=== PATIENT | female | born 1970 | race Caucasian/White ===

== ENCOUNTER 2025-04-15 01:27 | Emergency (ER) | payer OTHER, SELFPAY ==
[2025-04-15 01:35] VITALS: BP 156/90; PULSE 115; RESP 20; TEMP 37; O2SAT 98
[2025-04-15 02:13] VITALS: BP 153/87; PULSE 107; RESP 18; O2SAT 97
--- NOTE | 2025-04-15 02:50 | ED_ITS ---
HPI - Allergic Reaction General Chief complaint: Allergic Reaction Stated complaint: allergic reaction Time Seen by Provider: 04/15/25 02:37 History of Present Illness HPI narrative: 55-year-old female presenting to the emergency department with concerns of allergic reaction. Patient states that for the last 15 or so years she has had intermittent food allergies and states that she gets anaphylactic reactions including tongue swelling and throat irritation with various sweets. She had something sweet last night and several hours later woke up the middle night feeling like she was having an allergic reaction. She injected herself with her EpiPen with Benadryl and L even states that her symptoms resolved. Denies any hives or itching. She called EMS for assistance. She presents today in feels much better after the epinephrine. This has happened multiple x2 over the last 15 years. Was otherwise in her normal state of health. States her epinephrine pen was but did improve her symptoms. Denies any complaints at this time such as shortness of breath, difficulty swallowing. No abdominal pain, GI upset, diarrhea or nausea was otherwise in her normal state of health. Related Data Allergies Allergy/AdvReac Type Severity Reaction Status Date / Time No Known Allergies Allergy Verified 04/15/25 02:16 Review of Systems 2 Review of Systems: As reviewed above in HPI Exam 2 Narrative: GENERAL: [Well-appearing, well-nourished, and in no acute distress.] HEAD: [Normocephalic, atraumatic.] EYES: [PERRLA and EOMI.] ENT: Nares clear, no rhinorrhea or epistaxis. Mucous membranes moist. No base of tongue swelling, no uvular edema, no intolerance oral secretions. NECK: Supple. CHEST: No respiratory distress or wheezing HEART: [Regular rate and rhythm]. No murmur heard. [Normal peripheral pulses.] ABDOMEN: [Soft, nondistended], [nontender], [No rigidity or guarding] EXTREMITIES: Normal range of motion. [No edema.] SKIN: Rosacea over the upper extremities which is chronic and not urticarial or rash that is acute NEURO: [No focal deficits]. Alert and oriented [x3.] PSYCH: [Normal mood and affect.] Course Vital Signs Vital signs: Vital Signs Temperature 37.0 C 04/15/25 01:35 Pulse Rate 115 H 04/15/25 01:35 Respiratory Rate 20 04/15/25 01:35 Blood Pressure 156/90 H 04/15/25 01:35 Pulse Oximetry 98 04/15/25 01:35 Oxygen Delivery Room Air 04/15/25 01:35 Temperature 36.7 C 04/15/25 05:19 Pulse Rate 107 H 04/15/25 05:19 Respiratory Rate 19 04/15/25 05:19 Blood Pressure 153/97 H 04/15/25 05:19 Pulse Oximetry 98 04/15/25 05:19 Oxygen Delivery Room Air 04/15/25 01:35 MDM - Allergic Reaction MDM Narrative Medical decision making narrative: 55-year-old female presenting to the emergency department with concerns of allergic reaction. Patient states that for the last 15 or so years she has had intermittent food allergies and states that she gets anaphylactic reactions including tongue swelling and throat irritation with various sweets. She had something sweet last night and several hours later woke up the middle night feeling like she was having an allergic reaction. She injected herself with her EpiPen with Benadryl and L even states that her symptoms resolved. Denies any hives or itching. She called EMS for assistance. She presents today in feels much better after the epinephrine. This has happened multiple x2 over the last 15 years. Was otherwise in her normal state of health. States her epinephrine pen was but did improve her symptoms. Denies any complaints at this time such as shortness of breath, difficulty swallowing. No abdominal pain, GI upset, diarrhea or nausea was otherwise in her normal state of health. Patient otherwise appears well and her symptoms abated with epinephrine. Mildly tachycardic but no hypoxia. No signs or symptoms of anaphylaxis on examination. No tachypnea or fever. Given patient did inject herself with epinephrine she will be observed in the emergency department for rebound symptoms or any worsening allergic response for several hours. IV was established, she was given Solu-Medrol and Pepcid as well as basic laboratory studies being obtained. She was placed on property assessment monitor and pulse oximetry. Patient's workup was reassuring without any leukocytosis or anemia. Normal platelet count. Chemistry panel is normal, creatinine normal, glucose mildly elevated. Patient re-evaluated and her vital signs have normalized and she remains without symptoms. Patient observed here in the emergency department for multiple hours and remains clinically stable and without symptoms of allergic reaction. Will be sent home with refill of epinephrine autoinjector. Given return precautions and discharge instructions. Medical Records Attestation: I reviewed the patient's medical records. Lab Data Attestation: I reviewed the patient's lab results. 04/15/25 03:07 04/15/25 03:07 Labs: Lab Results 04/15/25 Range/Units 03:07 WBC 7.5 (4.5-10.0) K/mm3 RBC 3.93 L (4.2-5.4) M/mm3 Hgb 12.6 (12.0-15.0) g/dL Hct 37.4 (37.0-47.0) % MCV 95.2 (80-100) fl MCH 32.1 (26-34) pg MCHC 33.7 (32-36) g/dl RDW 13.2 (11.5-14.5) % Plt Count 298 (150-375) k/mm3 MPV 9.2 (7.4-10.4) fl Immature Gran % (Auto) 0.3 (0-0.5) % Neut % (Auto) 62.0 (45.5-73.1) % Lymph % (Auto) 24.8 (18.3-44.2) % Crane % (Auto) 11.1 H (2.6-8.5) % Eos % (Auto) 1.1 (0-4.4) % Baso % (Auto) 0.7 (0.2-1.2) % Lymph # (Auto) 1.87 (0.9-3.2) K/mm3 Crane # (Auto) 0.8 H (0.1-0.6) K/mm3 Eos # (Auto) 0.1 (0-0.3) K/mm3 Baso # (Auto) 0.1 (0.0-0.1) K/mm3 Abs Immat Gran (auto) 0.02 (0.00-0.031) K/mm3 Absolute Neuts (auto) 4.7 (1.3-6.7) K/mm3 Absolute Nucleated RBC 0.000 (0.0-0.012) K/mm3 Nucleated RBC % 0.0 (0.0-0.2) % Sodium 139 (137-145) mmol/L Potassium 4.2 (3.4-5.0) mmol/L Chloride 104 (98-107) mmol/L Carbon Dioxide 22 (22-30) mmol/L Anion Gap 13 H (4-12) mmol/L BUN 12 (7-17) mg/dL Creatinine 0.59 L (0.7-1.0) mg/dL Estim Creat Clear Calc 103 ml/min Estimated GFR > 60 (59 - ) Glucose 287 H (65-110) mg/dL Calcium 9.2 (8.4-10.2) mg/dL Discharge Plan Discharge Clinical Impression: Allergic reaction Patient Disposition: Home Condition: Stable Instructions: Antibiotic Form, Anaphylaxis (ED), Allergies (ED) Additional Instructions: We have refilled your epinephrine prescription. Take this in the event that you have anaphylaxis symptoms or allergic reaction that is severe. You can also take Benadryl and Pepcid/famotidine as needed for allergic reaction symptoms. Return with any emergencies otherwise follow-up with regular doctor. Patient Language: Amharic Prescriptions: New epinephrine [EpiPen 2-Edvin] 0.3 mg/0.3 mL auto-injector 0.3 mg IM Q5-15M PRN (Reason: anaphylaxis) Qty: 2 0RF Rx Instructions: do not exceed 3 doses per episode Follow-up/Referrals: Fred,MD Ramos [Primary Care Provider] -
[2025-04-15] MEDS: FAMOTIDINE 20 MG/2 ML VIAL IV PUSH (03:10)
--- OUTSIDE RECORDS SUMMARY | 2025-04-15 03:28 | XMS_ITS | Clinical Summary ---
Author Organization [facility] Address [address] [address] Phone Care Team Providers Care Ferry Operator Name Role Phone Unavailable Primary Care Provider Unavailabl e Allergies Active Allergy Reactions Criticality Noted Date Comments Metformin Diarrhea Low 12/04/2022 Dulaglutide Stomach upset Low 04/19/2023 Severe constipation Medications lancing device with lancets (Accu-Chek Multiclix Lancet) kitIndications:Ty pe 2 diabetes mellitus with hyperglycemia, without long-term current use of insulin (HCC) 1 each by other route 2 (two) times a day before breakfast and dinner 1 kit 3 Active blood glucose control high,low (Accu-Chek Yumiko Control Soln) solutionIndicatio ns:Type 2 diabetes mellitus with hyperglycemia, without long-term current use of insulin (HCC) Glucose control solution provides an easy way to ensure accurate blood glucose testing. 1 each 3 Active blood-glucose meter (Accu-Chek Yumiko Plus Meter) misc 1 each by other route 2 (two) times a day before breakfast and dinner 1 each 3 Active estradioL (ESTRACE) 1 mg tablet Take 1 tablet (1 mg total) by mouth daily Future refills must come from Gynecology 90 tablet 3 Active metroNIDAZOLE (METROCREAM) 0.75 % creamIndications: Acne Rosacea Apply topically 2 (two) times a week 45 g 1 3 Active Advair HFA 230-21 mcg/actuation inhalerIndication s:Moderate persistent asthma without complication INHALE 2 PUFFS 2 TIMES A DAY NEEDED. RINSE MOUTH WITH WATER AFTER USE. DO NOT SWALLOW. 12 each 3 3 Active glipiZIDE XL (GLUCOTROL XL) 10 mg 24 hr tablet Take 1 tablet (10 mg total) by mouth daily before breakfast 90 tablet 3 Active albuterol HFA (PROVENTIL HFA,VENTOLIN HFA,PROAIR HFA) 90 mcg/actuation inhalerIndication s:Moderate persistent asthma without complication Inhale 2 puffs every 6 (six) hours as needed for wheezing 8.5 each 3 Active amLODIPine (NORVASC) 10 mg tabletIndications :Hypertension, essential TAKE 1 TABLET BY MOUTH EVERY DAY 90 tablet 1 4 Active OneTouch Ultra Test stripIndications: Type 2 diabetes mellitus with hyperglycemia, without long-term current use of insulin (HCC) USE 1 STRIP TO TEST 2 (TWO) TIMES A DAY BEFORE BREAKFAST AND DINNER 200 strip 1 4 Active Active Problems Problem Noted Date Diagnosed Date Diabetic polyneuropathy asso ciated with type 2 diabetes mellitus 01/19/2023 Type 2 diabetes mellitus wit h hyperglycemia, without long-term current use of insulin 10/14/2022 Mixed dyslipidemia 10/14/2022 Type 2 diabetes mellitus with hyperlipidemia 04/2023 Hypertension associated with diabetes 10/14/2022 Hypertension, essential 10/12/2022 Moderate persistent asthma without complication 10/12/2022 Rosacea 10/12/2022 Eczema 10/12/2022 Immunizations Immunization Administration Dates Next Due Moderna SARS-CoV-2 Monovalent Vaccination (12+ Y RS) 07/15/2021,06/26/2021 Surgical History Surgery Date Site/Laterality Comments TOTAL ABDOMINAL 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 SECTION WISDOM TOOTH EXTRACTION 2 have been removed Medical History Medical History Date Comments Hypertension Asthma Ovarian tumor (benign), unspecified laterality Mixed dyslipidemia 10/14/2022 Diabetes (HCC) Family History Medical History Relation Name Comments Diabetes Father Hyperlipidemia Father Hypertension Father Diabetes Mother Hyperlipidemia Mother Hypertension Mother Breast cancer Neg Hx Colon cancer Neg Hx Relation Name Status Comments Father Mother Social History Tobacco Use Types Packs/Day Years Used Date Smoking Tobacco: Never Smokeless Tobacco: Never Tobacco Cessation:Counseling Given: Not Answered PHQ-2 Answer Date Recorded PHQ-2 Total Score (If total score is 3 or more points, staff should administer the PHQ-9) 0 10/12/2022 Personal Safety Answer Date Recorded Getting School Help Needed Not on file 08/18 Comments No Sex and Gender Information Value Date Recorded Sex Assigned at Not on file Legal Sex Female 8:09 AM COUNTER SALES REPRESENTATIVE Gender Identity Female 10/13/2022 10:44 AM COUNTER SALES REPRESENTATIVE Sexual Orientation Straight 10/13/2022 10 :44 AM COUNTER SALES REPRESENTATIVE Obstetrics History Last Filed Vital Signs Vital Sign Reading Time Taken Comments Blood Pressure 130/68 04/19/2023 10:25 AM CDT Pulse 80 04/19/2023 10:25 AM CDT Temperature - - Respiratory Rate - - Oxygen Saturation - - Inhaled Oxygen Concentration - - Weight 80.3 kg (177 lb) 04/19/2023 10:25 AM CDT Height 167.6 cm (5' 6) 04/19/2023 10:25 AM CDT Body Mass Index 28.57 04/19/2023 10:25 AM CDT Plan of Treatment Health Maintenance Due Date Last Done Comments Albumin Creatinine Ratio, Urine 1969 Breast Cancer Screening-Mammogram 1969 Colon Cancer Screening-Colonoscopy 1969 Dilated Eye Exam 1969 DTaP/Tdap/Td Vaccine (1 - Tdap) 01/05/1980 Hepatitis B Screening 1987 Regular Well Visit/Exam 18-64 1987 Pneumococcal vaccine <65 (1 of 2 - PCV) 01/05/1988 Zoster Vaccine (1 of 2) 2019 Depression Screening 10/12/2023 10/12/2022 Hemoglobin A1C 10/20/2023 04/19/2023, 01/04, 10/12/2022 Foot Exam 01/20/2024 01/19/2023 Lipid Panel 01/20/2024 01/19/2023, 10/12/2022 eGFR 01/20/2024 01/19/2023, 10/12/2022 Covid-19 Vaccine ( - season) 05/07/202405/2021, 06/26/2021 Influenza Vaccine (#1) 2025 Hepatitis C Screening Completed 10/12/2022 Procedures Procedure Name Priority Date/Time Associated Diagnosis Comments POCT HEMOGLOBIN A1C Routine 04/19/2023 1 0:30 AM CDT Type 2 diabetes mellitus with hyperlipidemia (HCC) EGFR Routine 01/19/2023 10:59 AM CDT Hypertension, essential Mixed dyslipidemia Hypertension associated with diabetes (HCC) LIPID PANEL Routine 01/19/2023 10:59 AM CDT Mixed dyslipidemia HEPATITIS C ANTIBODY Routine 10/12/2022 10:33 AM COUNTER SALES REPRESENTATIVE Encounter for hepatitis C screening test for low risk patient Laboratory examination ordered as part of a complete physical examination from Last 3 Months or Most Recently Relevant to Health Maintenance Results * POCT hemoglobin A1c (04/19/2023 10:30 AM CDT) Hemoglobin A1C, POC 6.7 % Blood 04/19/2023 10:3 0 AM CDT Danielle Davis MD POINT OF CARE TEST ORD ERABLES Final Result * eGFR (01/19/2023 10:59 AM CDT) eGFR 105 mL/min/1. 73 m2 SY[facility]IE MORSE Comment: Interpretive Data Reference Interval Normal >/= 90 mL/min/1.73m2 Mildly decreased* 60 - 89 mL/min/1.73m2 Mildly to moderately decreased 45 - 59 mL/min/1.73m2 Moderately to severely decreased 30 - 44 mL/min/1.73m2 Severely decreased 15 - 29 mL/min/1.73m2 Kidney Failure < 15 mL/min/1.73m2 *Relative to young adult level Estimated glomerular filtration rate is determined by the 2020 CKD-EPI equation recommended by the National Kidney Foundation (A Unifying Approach to GFR Estimation: Recommendations of the NKF-ASK Task Force on Reassessing the Inclusion of Race in Diagnosing Kidney Disease, JASN 202). The CKD-EPI equation should not be used for patients with unstable renal function and has not been validated in children and those over 70. Current interpretive data was last reviewed 2021. Blood 01/19/2023 10:5 9 AM CDT 01/19/2023 2:46 PM CDT Danielle Davis MD LAB BLOOD ORDERABLES F inal Result SYLVIE [id number] Department [place] [address] * (ABNORMAL) Lipid panel (01/19/2023 10:59 AM CDT) Cholesterol 220(H) 30 - 199 mg/dL SYLVIE MORSE Comment: Interpretive Data Ages < or = 19 years Acceptable: <170 mg/dL Borderline high: 170-199 mg/dL High: >or= 200 mg/dL Ages > or = 20 years Desirable: <200 mg/dL Borderline high: 200-239 mg/dL High: >or= 240 mg/dL Literature References: 1. Expert Panel on Integrated Guidelines for Cardiovascular Health and Risk Reduction in Children and Adolescents. Pediatrics 2011;128:S213 2. NCEP Expert Panel. Circulation 2004;110:227 Current Interpretive Data was last revised on 2018. Triglycerides 139 <=149 mg/dL SYLVIE MORSE Comment: Interpretive Data Ages < or = 9 years Acceptable: <75 mg/dL Borderline high: 75-99 mg/dL High: >or= 100 mg/dL Ages 10 to 20 years Acceptable: <90 mg/dL Borderline high: 90-129 mg/dL High: >or= 130 mg/dL Ages > or = 20 years Desirable: <150 mg/dL Borderline high: 150-199 mg/dL High: 200-499 mg/dL Very high: >or= 499 mg/dL Literature References: 1. Expert Panel on Integrated Guidelines for Cardiovascular Health and Risk Reduction in Children and Adolescents. Pediatrics 2011;128:S213 2. NCEP Expert Panel. Circulation 2004;110:227 Current Interpretive Data was last revised on 2018. HDL 84 >=40 mg/dL SYLVIE MORSE Comment: Interpretive Data Ages < or = 19 years Acceptable: >45 mg/dL Borderline low: 40-45 mg/dL Low: <40 mg/dL Ages > or = 20 years Desirable: >or= 60 mg/dL Low: <40 mg/dL Literature References: 1. Expert Panel on Integrated Guidelines for Cardiovascular Health and Risk Reduction in Children and Adolescents. Pediatrics 2011;128:S213 2. NCEP Expert Panel. Circulation 2004;110:227 Current Interpretive Data was last revised on 2018. LDL, calculated 108 <=129 mg/dL SYLVIE MORSE Comment: Interpretive Data Ages < or = 19 years Acceptable: <110 mg/dL Borderline high: 110-129 mg/dL High: >or= 130 mg/dL Ages > or = 20 years Optimal: <100 mg/dL Near optimal: 100-129 mg/dL Borderline high: 130-159 mg/dL High: >160 mg/dL Literature References: 1. Expert Panel on Integrated Guidelines for Cardiovascular Health and Risk Reduction in Children and Adolescents. Pediatrics 2011;128:S213 2. NCEP Expert Panel. Circulation 2004;110:227 Current Interpretive Data was last revised on 2018. Non-HDL Cholesterol 136 mg/dL SYLVIE MORSE Comment: Interpretive Data Ages < or = 19 years Acceptable: <120 mg/dL Borderline high: 120-144 mg/dL High: >145 mg/dL Ages > or = 20 years When triglycerides are >200 mg/dL, Non-HDL cholesterol is a secondary target of therapy with treatment goals that are 30 mg/dL greater than the LDL cholesterol target. Literature References: 1. Expert Panel on Integrated Guidelines for Cardiovascular Health and Risk Reduction in Children and Adolescents. Pediatrics 2011;128:S213 2. NCEP Expert Panel. Circulation 2004;110:227 Current Interpretive Data was last revised on 2018. Chol/HDL ratio 3 SYLVIE MORSE Blood 01/19/2023 10:5 9 AM CDT 01/19/2023 2:42 PM CDT us Danielle Davis MD LAB BLOOD ORDERABLES F inal Result SYLVIE MORSE [id number] Department [place] [address] * Hepatitis C antibody (10/12/2022 10:33 AM COUNTER SALES REPRESENTATIVE) Hep C Ab Nonreactive Nonreactive SYLVIE MORSE Comment: Interpretive Data Nonreactive: Antibodies to HCV not detected. Does NOT exclude the possibility of recent exposure to HCV. Equivocal: Equivocal for HCV antibodies. Supplemental molecular testing will be automatically performed to determine infection status in accordance with current CDC screening recommendations. Reactive: Positive for HCV antibodies. This may represent current or past HCV infection. Supplemental molecular testing will be automatically performed to determine current infection status in accordance with current CDC screening recommendations. Interpretive data was last revised on 2019. Blood 10/12/2022 10:3 3 AM COUNTER SALES REPRESENTATIVE 10/12/2022 3:57 PM COUNTER SALES REPRESENTATIVE Danielle Davis MD LAB MICROBIOLOGY - GEN ERAL ORDERABLES Final Result SYLVIE [id number] Department [place] [address] from Last 3 Months or Most Recently Relevant to Health Maintenance Insurance [facility]
[2025-04-15 03:30] VITALS: BP 140/78; PULSE 99; RESP 16; O2SAT 99
[2025-04-15 03:35] LABS: Hematocrit 37.4 % (37.0-47.0); Hemoglobin 12.6 g/dL (12.0-15.0); Immature Granulocyte Percent A 0.3 % (0-0.5); Lymphocytes Absolute Auto 1.87 K/mm3 (0.9-3.2); Mean Corpuscular HGB Conc 33.7 g/dl (32-36); Mean Corpuscular Hemoglobin 32.1 pg (26-34); Mean Corpuscular Volume 95.2 fl (80-100); Nucleated Red Blood Cells Absolute Auto 0.000 K/mm3 (0.0-0.012); Nucleated Red Blood Cells Perc 0.0 % (0.0-0.2); Platelet Count Result 298 k/mm3 (150-375); Red Blood Count 3.93 M/mm3 (4.2-5.4); White Blood Count 7.5 K/mm3 (4.5-10.0)
[2025-04-15 03:37] LABS: Anion Gap 13 mmol/L (4-12); Blood Urea Nitrogen 12 mg/dL (7-17); Calcium 9.2 mg/dL (8.4-10.2); Carbon Dioxide 22 mmol/L (22-30); Chloride 104 mmol/L (98-107); Estimated CRCL calculation 103 ml/min; Estimated Glomerular Filt Rate > 60; Glucose 287 mg/dL (65-110); Potassium 4.2 mmol/L (3.4-5.0); Sodium 139 mmol/L (137-145)
[2025-04-15 05:19] VITALS: BP 153/97; PULSE 107; RESP 19; TEMP 36.7; O2SAT 98
== END 2025-04-15 05:15 | disposition home or self-care (01) ==
PROVIDERS: Emergency Provider Student in an Organized Health Care Education/Training Program; PCP Family Medicine
DX: T78.40XA Allergy, unspecified, initial encounter (principal); X58.XXXA Exposure to other specified factors, initial encounter
CPT/HCPCS: 36415; 80048; 85025; 96374; 96375; 99284; J2919

== ENCOUNTER 2025-08-18 11:19 | Emergency (ER) | payer OTHER, SELFPAY ==
--- OUTSIDE RECORDS SUMMARY | 2007-09-13 03:01 | XMS_ITS | Continuity of Care Document ---
Author Organization [facility] Address [address] [place] [address] Phone Care Team Providers Care Water Purifier Name Role Phone Unavailable Unavailable Unavailable Allergies, Adverse Reactions, Alerts Substance Reaction Status Criticality No Known allergies Medications Medication Instructions Dosage Effective Dates (start - stop) Status Comments ALBUTEROL 90MCGAEROSOL 2 puffs every 6-8 hours .hfa - Active Advair HFA 115 mcg-21 mcg/Actuation Aerosol Inhaler one puff twice a day - Active prednisone 20 mg Tab 2 tablets a day until finished - Active ProAir HFA 90 mcg/Actuation Aerosol Inhaler inhale 2 puffs by mouth every 6-8 hour. PATIENT MUST F/U WITH PCP. - No Longer Active Advance Directives Directive Yes / No Effective Date File Name No Information Encounters Encounter Description Practice Location Reason(s) For Visit Diagnoses Date Provider Providers Copied on Encounter [facility], [address], [place], [place], [id number], [place] tel:[phone] [facility] Internal Medicine No Information No Information [facility], [address], [place], [id number], [place] tel:[phone] [facility] Internal Medicine asthma problems (chief complaint) ASTHMA NOSALLERGIC RHINITIS NOS Marlene Randle. [address] [place] [address], [id number], [place]. tel:[phone] Referring Provider: Jer Rosario, [address] [place] [address], [id number] . tel:[phone] Family History Family Member Type Diagnosis Age At Onset No Information Payers Payer name Insurance type Covered democrat ID Authoriza tion(s) No Information Social History Type Description Quantity Date Captured Comments Sex Female Smoking Status No Information Chief Complaint And Reason For Visit No Information Reason For Referral Reason For Referral No Information History Of Present Illness Encounter Date Complaint History Of Prese nt Illness No Information Functional Status Date Functional Assessmen t No Information Instructions Date Instruction Additional Infor mation No Information Assessments Type Assessment Date No Information Patient Care Teams Name Effective Dates (start - stop) Status Members No Information
--- OUTSIDE RECORDS SUMMARY | 2007-09-13 03:01 | XMS_ITS | Continuity of Care Document ---
Author Organization [facility] Address [address] [place] [address] Phone Care Team Providers Care Almond Paste Molder Name Role Phone Unavailable Unavailable Unavailable Allergies, [...] Diagnoses Date Provider Providers Copied on Encounter [facility], [address], [place], [place], [id number], [place] tel:[phone] [facility] Internal Medicine No Information No Information [facility], [address], [place], [id number], [place] tel:[phone] [facility] Internal Medicine asthma problems (chief complaint) ASTHMA NOSALLERGIC RHINITIS NOS Marlene Randle. [address] [place] [address], [id number], [place]. tel:[phone] Referring Provider: Jer Rosario, [address] [place] [address], [id number] . tel:[phone] Family History Family Member Type Diagnosis Age At Onset No Information Payers Payer name Insurance type Covered alliance party ID Authoriza tion(s) No Information Social History [...]
[2025-08-18] VITALS (17 sets, daily range): BP systolic 127–170; BP diastolic 65–101; PULSE 89–119; RESP 12–33; TEMP 37.1; O2SAT 98–100
--- OUTSIDE RECORDS SUMMARY | 2025-08-18 11:22 | XMS_ITS | Data Portability ---
[facility] Address [address] [place] [address] Assessment No assessment recorded. Plan of Treatment Reminders Order Date Submit Date Provider Last Modified By Organization Details Last Modified Time Details Appointments None recorded. Lab None recorded. Referral None recorded. Procedures None recorded. Surgeries None recorded. Imaging None recorded. Medication Orders estradiol 1 mg tablet 2022 023 [email or web address] [id number], [address] [place], [address], 4 14:39:26 clobetasol 0.05 % topical ointment 2022 023 ADITHYA [facility] #[id number], [address] [place], [address], 3 16:52:01 Patient TargetsNo targets recorded. Patient InstructionsNo instructions recorded. Reason for Referral None Reported. Problems No Known Problems Procedures Surgical History Date Name Laterality Status Provider Name and Address Organization Details Recorded Time 09/06/19 17 Total hysterectomy completed France Paredes APN, JORGEC Attn: Accounting,[address] [facility], [place], [address], [facility] 08/04/2023 14:01:03 section completed Funmilayo Amado MA [facility] 11/12/2022 16:19:24 Imaging Results None recorded. Procedure Notes None recorded. Medical Equipment None Reported. Allergies No known drug allergies Medications Name Sig Start Date Stop Date Status Note LastModified by Organization Details LastModified Time glipizide ER 10 mg tablet, extended release 24 hr TAKE 1 TABLET BY MOUTH EVERY DAY BEFORE BREAKFAST active Not Available Not Available No t Available estradiol 1 mg tablet TAKE 1 TABLET BY MOUTH EVERY DAY PT NEEDS APPT 2024 active Not Available Not Available Not Avai jude OneTouch Ultra Test strips USE 1 STRIP TO TEST 2 (TWO) TIMES A DAY BEFORE BREAKFAST AND DINNER active Not Available Not Available N ot Available amlodipine 10 mg tablet TAKE 1 TABLET BY MOUTH EVERY DAY active Not Available Not Available No t Available clobetasol 0.05 % topical ointment APPLY THIN COAT TO AFFECTED AREA TWICE A DAY active Not Available Not Available No t Available albuterol sulfate HFA 90 mcg/actuation aerosol inhaler TAKE 2 PUFFS BY MOUTH EVERY 6 HOURS NEEDED FOR WHEEZE active Not Available Not Available No t Available metformin ER 500 mg tablet,extend ed release 24 hr active Not Available Not Available Not Available Advair HFA 230 mcg-21 mcg/actuation aerosol inhaler INHALE 2 PUFFS 2 TIMES A DAY NEEDED. RINSE MOUTH WITH WATER AFTER USE. DO NOT SWALLOW. active Not Available Not Available No t Available Trulicity 0.75 mg/0.5 mL subcutaneous pen injector INJECT 0.5 ML (0.75 MG TOTAL) UNDER THE SKIN EVERY 7 DAYS active Not Available Not Available No t Available OneTouch Ultra2 Meter USE TO TEST 2 (TWO) TIMES A DAY BEFORE BREAKFAST AND DINNER active Not Available Not Available N ot Available OneTouch Delica Plus Lancet 30 gauge USE TO MICHELLE FINGER 2 (TWO) TIMES A DAY BEFORE BREAKFAST AND DINNER active Not Available Not Available N ot Available Vitals Date Recorded Body height Body mass index (BMI) Body weight Heart rate Systolic And Diastolic Provider Name and Address Organization Details Last Updated DateTime 11/12/2022 167.64 cm 28.6 kg/m2 35754.85 g 81 /min 138/89 mm[Hg] LINWOOD Christie [facility] 11/12/2022 16:15:12 Date Recorded Body height Body mass index (BMI) Body weight Heart rate Systolic And Diastolic Provider Name and Address Organization Details Last Updated DateTime 02/24/2023 167.64 cm 28.1 kg/m2 17861.47 g 81 /min 128/79 mm[Hg] LINWOOD Christie [facility] 02/24/2023 16:42:42 Social History Question Answer Notes LastModified by Organizat ion Details LastModified Time Tobacco Smoking Status Never Smoker LINWOOD Christie, [facility] 11/12/2022 16:18:45 Has Tobacco Cessation Counseling Been Provided? No Information not available 11/12/2022 Sex: Female Functional Status Question Answer Note LastModified by Organizat ion Details LastModified Time Do you use any illicit or recreational drugs? No Information not available 11/12/2022 Do you or have you ever used any other forms of tobacco or nicotine? No Information not available 11/12/2022 What is your level of alcohol consumption? None Information not available 11/12/2022 Mental Status None recorded. Family History Relationship Description Onset Age of this Age Resolved Age Notes LastModified by Organization Details LastModified Time Father No current problems or disability [email or web address] Not available 11/12 16:17:57 Mother No current problems or disability [email or web address] Not available 11/12 16:17:57 Medical History Condition Response Diabetes Y High Blood Pressure Y Asthma Y Gynecological History Statement/Question Response Flow Light On BCP's at Conception? N Menses Monthly Y STIs/STDs N Date of Last Pap Smear Duration of Flow (days) 4 Age at Menarche 13 Current Control Method Hysterectom y LMP Unknown Obstetrics History GPAL:G 4 P 2 0 2 2 Type Value Full Term 2 Induced 1 Spontaneous 1 Living 2 Total 4 Past Encounters Encounter ID Performer Location Encounter Start Date Encounter Closed Date Diagnosis/Indication Diagnosis SNOMED-CT Code Diagnosis ICD10 Code Diagnosis IMO Codes Diagnosis Note [id number] CORRY Mora 14 OB [address] [facility] [address] [place] [address] 11/12/2022 15:59:06 11/16/2022 10:12:27 Gynecologic examination 97441476 Z01.419 1. Counseled regarding prevention of STD's , condom use and prevention . 2. Counseled regarding contracept tristian options, risk factors and side effects. 3. Advised avoidance of tobacco, alcohol, and drugs . 4. Counseled regarding folic acid supplement ation, calcium needs and prevention of osteoporos is . 5. BSE reviewed and recommende d. 6. Follow up in one year or sooner if needed. Genital li steen sclerosus 028247662 L90.0 Pt encouraged to use water based lubricant each time during sex. Pt instructed to pay attention to what sexual positions cause pain and avoid. PT verbalized understand ing. Encouraged use of crisco veg shortening bid. [id number] Rosy Dodson, [facility] [address] 14 OB [address] [facility] [address] [place] [address] 02/24/2023 16:34:39 03/02/2023 07:42:39 Menopausal syndrome [id number] N95.9 1. Discussed hormonal options and otc herbal options for menopausal management . Discussed risk factors and side effects associated with both options including increase risk of cancer, heart attack and stroke, blood clots. 2. Pt would like to continue hrt at this time 3. Reviewed risk factors of hrt including increased risk of stroke, heart attack, certain cancers. pt verbalized understand ing. 4. will follow up in 12 months, sooner if needed. Health Concerns Section Related Observation LastModified by Organization Detai ls LastModified Time None Recorded Concern Status LastModified by Organization Details LastModified Time None Recorded Advance Directives Directive None Recorded Payers Insurance Date Sequence Insurance Name Policy Number Policy Shin Covered Member ID Shin Member ID Guarantor Name 10/07/2023 1 [employer] BETTER HEALTH OF [place] ON OR AFTER 08/06/2020 (MEDICAID REPLACEMENT - HMO) Betsy Le [id number] Betsy Le Notes Date Note Type Note Provider Name and Address Organization Details Recorded Time 3 text/html Annual GYNReported by PatientGenitourinary symptomsFor urinary symptoms, patient reportsno hematuriaandno incontinence. For vulva, patient reportsno genital lesion. For vagina, patient reportsnormal vaginal discharge.Breast symptomsFor breast, patient reportsno breast pain,no breast lump, andno nipple discharge.Endocrine symptomsFor menopausal symptoms, patient reportsinadequacy of lubrication of vaginal mucosabut reportsno menopausal symptoms. For sexual complaints, patient reportsno sexual complaints,no pain during intercourse, andnormal libido.Psychological symptomsFor psychological symptoms, patient reportsno depression,no anxiety, andno pmdd.Preventative measuresFor preventive measures, patient reportsencourage self breast examination,encourage regular exercise,encourage no tobacco use, andencourage regular mammograms starting age 40.ROS as noted in the HPI 52 yo fe here for annual wwe- declines breast exam, has mammogram next week- states she has never had a pap, had a hysterectomy 5 years ago for huge tumor- hx asthma, htn, dm2- - worried about bladder falling, states she gets itchy around vulva, uses olive oil JORGE Mora Attn: Accounting,[address] [facility], [place], [address], [facility] 11/12/2022 16:52:17 3 text/html Annual GYNReported by PatientGenitourinary symptomsFor urinary symptoms, patient reportsno hematuriaandno incontinence. For vulva, patient reportsno genital lesion. For vagina, patient reportsnormal vaginal discharge.Breast symptomsFor breast, patient reportsno breast pain,no breast lump, andno nipple discharge.Endocrine symptomsFor menopausal symptoms, patient reportsinadequacy of lubrication of vaginal mucosabut reportsno menopausal symptoms. For sexual complaints, patient reportsno sexual complaints,no pain during intercourse, andnormal libido.Psychological symptomsFor psychological symptoms, patient reportsno depression,no anxiety, andno pmdd.Preventative measuresFor preventive measures, patient reportsencourage self breast examination,encourage regular exercise,encourage no tobacco use, andencourage regular mammograms starting age 40.ROS as noted in the HPI 53 yo fe here for med refill on estradiol 1mg - states she has never had a pap, had a hysterectomy 5 years ago for huge tumor- hx asthma, htn, dm2- CORRY Mora Attn: Accounting,[address] [facility], [place], [address], [facility] 02/24/2023 16:47:23 OBGyn Episode No OBEpisode recorded.
[2025-08-18] MEDS: FAMOTIDINE 20 MG/2 ML VIAL (11:35)
[2025-08-18] MEDS: EPINEPHrine HCL INJ 1 MG/ML AMPUL 0.3 MG SUB-Q (11:36)
--- NOTE | 2025-08-18 13:56 | ED.ALLEREA ---
HPI - Allergic Reaction General Chief complaint: Allergic Reaction Stated complaint: tongue swelling Time Seen by Provider: 08/18/25 11:32 Source: patient Mode of arrival: ambulatory Limitations: no limitations History of Present Illness HPI narrative: 55-year-old with a history of allergies presents to the ER with complaints of tongue swelling with started few minutes ago of to eating spicy sausage. She denies having any shortness of breath. Has few hives around the neck. Patient states that she has these episodes occasionally with certain food items. Denies any shortness of breath the chest pain . MD complaint: allergic reaction Onset (ago): hour(s) (1) Exposure: food Symptoms: tongue swelling Severity: moderate Treatment prior to arrival: none Previous Allergic Reaction History: prior ED visit(s) and angioedema Related Data Allergies Allergy/AdvReac Type Severity Reaction Status Date / Time capsaicin Allergy Severe Anaphylaxis Verified 08/18/25 11:28 Review of Systems Review of Systems: All systems reviewed & are unremarkable except as noted in HPI and below Constitutional: Constitutional: Reports no additional constitutional complaints Eyes: Eyes: Reports no additional eye complaints ENT: Reports as per HPI Cardiovascular: Cardiovascular: Reports no additional cardiovascular complaints Respiratory: Respiratory: Reports no additional respiratory complaints Gastrointestinal: Gastrointestinal: Reports no additional gastrointestinal complaints Musculoskeletal: Musculoskeletal: Reports no additional musculoskeletal complaints Integumentary/Breasts: Skin/Breast: Reports system reviewed and no additional complaints, except as docu Exam Narrative: GENERAL: Well-appearing, well-nourished, and in no acute distress. HEAD: Normocephalic, atraumatic. EYES: PERRLA and EOMI. ENT: Nares clear, no rhinorrhea or epistaxis. Mucous membranes moist. right side of the tongue is swollen , Uvula midline ,no stridor NECK: Supple. CHEST: Clear to auscultation. No respiratory distress. HEART: Regular rate and rhythm. No murmur heard. Normal peripheral pulses. ABDOMEN: Soft, nontender, nondistended, normal active bowel sounds. EXTREMITIES: Normal range of motion. No edema. SKIN: Warm, dry, no rash. NEURO: No focal deficits. Alert and oriented x3. PSYCH: Normal mood and affect. Your sugar was Course Course Emergency Course: Patient was given IV Solu-Medrol, Pepcid, Benadryl, Epinephrine 0.3 mg Sq , pt was observed for quite sometime , her swelling has significantly reduced , she feels much better ,has no difficulty in swollowing . Has Epipen at home. Advised her to follow with her PMD or with orthotic finish grinding technician Vital Signs Vital signs: Vital Signs Temperature 37.1 C 08/18/25 11:25 Pulse Rate 112 H 08/18/25 11:25 Respiratory Rate 14 08/18/25 11:25 Blood Pressure 170/101 H 08/18/25 11:25 Pulse Oximetry 99 08/18/25 11:25 Oxygen Delivery Room Air 08/18/25 11:25 Temperature 37.1 C 08/18/25 11:25 Pulse Rate 108 H 08/18/25 13:01 Respiratory Rate 33 H 08/18/25 13:01 Blood Pressure 141/85 H 08/18/25 13:01 Pulse Oximetry 99 08/18/25 13:01 Oxygen Delivery Room Air 08/18/25 11:25 MDM Differential Diagnosis Differential Diagnosis: allergic reaction , angio edema Discharge Plan Discharge Clinical Impression: Angioedema Qualifiers: Encounter type: initial encounter Qualified Code(s): T78.3XXA - Angioneurotic edema, initial encounter Patient Disposition: Home Condition: Stable Instructions: Food Allergy (ED) Patient Language: Estonian Prescriptions: New prednisone 20 mg tablet 20 mg PO BID Qty: 10 0RF No Action epinephrine [EpiPen 2-Edvin] 0.3 mg/0.3 mL auto-injector 0.3 mg IM Q5-15M PRN (Reason: anaphylaxis) Qty: 2 0RF Rx Instructions: do not exceed 3 doses per episode Follow-up/Referrals: Fred,MD Ramos [Primary Care Provider, Unknown] Time of Disposition: 14:08
== END 2025-08-18 14:35 | disposition home or self-care (01) ==
PROVIDERS: Emergency Provider Family Medicine; PCP Family Medicine
DX: T78.3XXA Angioneurotic edema, initial encounter (principal)
CPT/HCPCS: 96372; 99284; J0166; J1200; J2919